=== PATIENT | male | born 1985 ===

== ENCOUNTER → 2022-11-20 08:57 | Outpatient (CLI) | payer OTHER | END | disposition home or self-care (01) | LOC: LAB 08:57 | PROVIDERS: ATTEND Obstetrics & Gynecology | DX: Z20.818 Contact with and (suspected) exposure to other bacterial communicable diseases (principal); Z20.828 Contact with and (suspected) exposure to other viral communicable diseases ==

== ENCOUNTER → 2025-03-04 07:03 | Outpatient (CLI) | payer OTHER ==
[2025-03-04 08:10] LABS: BASO % 0.8 % (0.1-1.2); EOS # 0.38 (0.04-0.54); EOS % 4.9 % (0.7-7.0); HEMATOCRIT 41.6 % (40.1-51.0); HEMOGLOBIN 13.5 g/dL (13.7-17.5); LYMPH # 3.19 (1.18-3.74); LYMPH % 41.4 % (19.3-53.1); MONO # 0.86 (0.24-0.82); MONO % 11.2 % (4.7-12.5); NEUT # 3.19 (1.56-6.13); NEUT % 41.4 % (34.0-71.1); PLATELET COUNT 269 K/uL (163-369); RED BLOOD COUNT 4.65 M/uL (4.63-6.08)
[2025-03-04 08:21] LABS: URINE APPEARANCE Clear; URINE BILIRRUBIN Negative (NEGATIVE); URINE BLOOD Negative; URINE COLOR Yellow; URINE GLUCOSE Negative (NEGATIVE); URINE KETONE Negative (NEGATIVE); URINE LEUKOCYTE Negative; URINE NITRATE Negative; URINE PROTEIN Negative (NEGATIVE); URINE UROBILINOGEN 0.2 E.U./dl
[2025-03-04 08:24] LABS: URINE EPITHELIAL CELLS 1.8 uL (0.0-38.8); URINE WBC 2.3 uL (0.0-23.2)
[2025-03-04 08:40] LABS: URINE BACTERIA 2.4 uL (0.0-1933); URINE RBC 0.4 uL (0.0-20.8)
[2025-03-04 08:48] LABS: BILIRUBIN TOTAL 0.46 mg/dL (0.3-1.2); BILIRUBIN,CONJUGATED 0.12 mg/dL (0.0-0.2); BILIRUBIN,UNCONJUGATED 0.34 mg/dL (0.0-0.6); CALCIUM 9.6 mg/dL (8.5-10.1); CHOL HDL RATIO 4.7 (0-5.0); CREATININE SERUM 1.14 mg/dL (0.70-1.30); GFR 71.51; GLOBULINA 3.5 G/DL (2.4-3.5); POTASSIUM 4.24 mEq/L (3.5-5.1); PROSTATIC SPECIFIC ANTIGEN 0.806 NG/ML (0.010-4.00); T4 TOTAL 10.06 UG/DL (4.5-12.1); TOTAL PROTEIN 7.5 gm/dL (6.4-8.2); TSH 1.32 uIU/mL (0.358-3.74)
[2025-03-05 09:08] LABS: HSV I IGG TYPE SPECIFIC Non Reactive (Non Reactive); hav igm Negative (Negative); hcv Non Reactive (Non Reactive); hep b c Negative (Negative); hep b s ag Negative (Negative)
[2025-03-05 13:08] LABS: VITAMIN D 1 25 59.7 pg/mL (24.8-81.5)
[2025-03-05 21:07] LABS: chla t Negative (Negative); neiss Negative (Negative)
== END | disposition home or self-care (01) ==
LOC: LAB 07:03
DX: Z11.3 Encounter for screening for infections with a predominantly sexual mode of transmission (principal); E55.9 Vitamin D deficiency, unspecified; E78.5 Hyperlipidemia, unspecified; N39.0 Urinary tract infection, site not specified; E11.9 Type 2 diabetes mellitus without complications; D64.9 Anemia, unspecified; R19.5 Other fecal abnormalities; Z12.5 Encounter for screening for malignant neoplasm of prostate; M06.9 Rheumatoid arthritis, unspecified